=== PATIENT | male | born 1980 | race Hispanic/Latino ===

== ENCOUNTER 2019-10-17 20:56 | Emergency (ER) | payer OTHER ==
[2019-10-17] MEDS ORDERED: LIDOCAINE PF 2% 5ML ABBOJECT ONE (23:17)
== END 2019-10-18 00:11 | disposition home or self-care (01) ==
LOC: EDH 20:56
DX: S01.312A Laceration without foreign body of left ear, initial encounter (principal); R03.0 Elevated blood-pressure reading, without diagnosis of hypertension; W22.8XXA Striking against or struck by other objects, initial encounter; Y93.89 Activity, other specified; Y92.830 Public park as the place of occurrence of the external cause; Y99.8 Other external cause status
CPT/HCPCS: 12051; 99284; J2001